=== PATIENT | female | born 1945 | race African-American/Black ===

== ENCOUNTER 2016-10-24 12:54 | Emergency (ER) | payer OTHER, BC ==
[~2016-10-24] VITALS: Ht 165.1 cm; Wt 72.5 kg
[~2016-10-24 12:54] MED LIST: ALTOPREV20 MG PO; AMLODIPINE BESY10 MG PO; ANTIVERT25 MG PO; COZAAR50 MG PO; FLEXERIL10 MG PO; LOSARTAN POTAS100 MG PO; LUMIGAN 0.50 DROP/22 BOTH EYES; METFORMIN HCL500 M4 PO; MOBIC7.5 MG PO; OMEPRAZOLE40 M1 PO; PERCOCET 5/31 TABLET PO; SKELAXIN800 MG PO; TRADJENTA5 MG PO; VICODIN 5-3001 EACH PO; VICODIN,LORT1 TABLET PO; ZOFRAN ODT4 MG PO
[2016-10-24] MEDS ORDERED: ZOFRAN ODT4 MG PO (14:05)
[2016-10-24] MEDS ORDERED: VALIUM5 MG PO (14:06)
[2016-10-24] MEDS ORDERED: VALIUM2 MG PO (14:09)
[2016-10-24] MEDS ORDERED: PRAVACHOL40 MG PO (14:39)
[2016-10-24] MEDS ORDERED: VITAMIN D2000 UNI1 PO (14:42)
[2016-10-24] MEDS ORDERED: TRADJENTA5 MG PO (14:43)
[2016-10-24] MEDS ORDERED: ALENDRONATE SOD35 MG PO (14:44)
[2016-10-24] MEDS ORDERED: OMEGA XL PO (14:45)
[2016-10-24 15:14] VITALS: BP 136/68
== END 2016-10-24 15:17 | disposition home or self-care (01) ==
LOC: EME 12:54
DX: M54.42 Lumbago with sciatica, left side (principal); I10 Essential (primary) hypertension; E11.9 Type 2 diabetes mellitus without complications
CPT/HCPCS: 73502; 99281; 99284; J3010